=== PATIENT | female | born 1995 | race Caucasian/White ===

== ENCOUNTER 2017-12-22 09:57 | Inpatient (IN) | payer MEDICAID, OTHER ==
[2017-12-22] MEDS: ONDANSETRON (ODT) 4 MG TAB ODT (10:37)
[2017-12-22 10:44] LABS: ADD MAN DIFF? NO
[2017-12-22 10:48] LABS: WHITE BLOOD COUNT 7.1 10^3/ul (4.8-10.8)
[2017-12-22 10:48] LABS: BASOPHIL # 0.1 10^3/ul (0.0-0.1); BASOPHILS % 0.8 % (0.0-2.0); EOSINOPHILS # 0.1 10^3/ul (0.0-0.5); EOSINOPHILS % 1.7 % (0.0-7.0); HEMATOCRIT 31.9 % (37.0-47.0); HEMOGLOBIN 10.8 g/dl (12.0-16.0); LYMPHOCYTES # 2.6 10^3/ul (0.8-2.9); LYMPHOCYTES % 36.1 % (15.0-51.0); MEAN CORPUSCULAR HEMOGLOBIN 33.9 pg (29.0-33.0); MEAN CORPUSCULAR HGB CONC 33.9 g/dl (32.0-37.0); MEAN PLATELET VOLUME 9.7 fl (7.4-10.4); MONOCYTE # 0.4 10^3/ul (0.3-0.9); MONOCYTES % 5.5 % (0.0-11.0); NEUTROPHIL # 3.9 10^3/ul (1.6-7.5); NEUTROPHILS % 55.5 % (39.0-77.0); PLATELET COUNT 200 10^3/UL (140-415); RED BLOOD COUNT 3.19 10^6/ul (4.20-5.40); RED CELL DISTRIBUTION WIDTH 13.7 % (11.5-14.5)
[2017-12-22 10:52] LABS: ADD UMIC YES; UR ASCORBIC ACID NEGATIVE (NEGATIVE); UR BACTERIA FEW /HPF (NONE SEEN); UR BILIRUBIN (Dip) NEGATIVE (NEGATIVE); UR BLOOD (Dip) 3+ mg/dL (NEGATIVE); UR BUDDING YEAST MODERATE /HPF (NONE SEEN); UR CLARITY CLOUDY (CLEAR); UR COLOR YELLOW (YELLOW); UR GLUCOSE (Dip) NEGATIVE (NEGATIVE); UR KETONES (Dip) NEGATIVE (NEGATIVE); UR LEUKOCYTE ESTERASE (Dip) TRACE Leu/ul (NEGATIVE); UR MUCUS MODERATE /HPF (NONE SEEN); UR NITRITE (Dip) NEGATIVE (NEGATIVE); UR RBC > 182 /HPF (0-5); UR SPECIFIC GRAVITY (Dip) 1.023 (1.003-1.030); UR SQUAMOUS EPITHELIAL CELL FEW /HPF (FEW); UR TOTAL PROTEIN (Dip) 2+ mg/dl (NEGATIVE); UR UROBILINOGEN (Dip) NEGATIVE (NEGATIVE); UR WBC 65 /HPF (0-5)
[2017-12-22 11:08] LABS: ALANINE AMINOTRANSFERASE 48 IU/L (13-69); ALBUMIN/GLOBULIN RATIO 1.51; ALKALINE PHOSPHATASE 42 IU/L (42-121); ANION GAP 14 (8-16); ASPARTATE AMINO TRANSFERASE 64 IU/L (15-46); BILIRUBIN,INDIRECT 0.3 mg/dl (0-1.1); BILIRUBIN,TOTAL 0.3 mg/dl (0.2-1.3); BLOOD UREA NITROGEN 14 mg/dl (7-20); CALCIUM 9.1 mg/dl (8.4-10.2); CARBON DIOXIDE 23 mmol/L (21-31); CHLORIDE 107 mmol/L (97-110); CREATINE KINASE 1121 IU/L (23-200); CREATININE 1.22 mg/dl (0.44-1.00); GLUCOSE 96 mg/dl (70-220); LIPASE 177 U/L (23-300); POTASSIUM 4.1 mmol/L (3.5-5.1); SODIUM 140 mmol/L (135-144); TOTAL PROTEIN 8.3 g/dl (6.1-8.1)
[2017-12-22] MEDS ORDERED: ONDANSETRON 4 MG INJ IV ×2 (14:00→17:30)
[2017-12-22] MEDS ORDERED: ACETAMINOPHEN 325 MG TAB PO ×2 (14:00→17:30)
[2017-12-22] MEDS: CEFTRIAXONE 1 GM/50 ML (PMX) 50 ML IVPB (14:02)
[2017-12-22] MEDS ORDERED: NACL 0.9% 3 ML SYG IV (17:30)
[2017-12-22] MEDS: SOD CHLORIDE 0.9% 1,000 ML IV (18:40)
[2017-12-22] MEDS: PRENATAL VITAMIN PO (21:11)
[2017-12-23] MEDS: SOD CHLORIDE 0.9% 1,000 ML IV ×3 (02:31→17:16)
[2017-12-23 05:39] LABS: ADD MAN DIFF? NO
[2017-12-23 05:49] LABS: BASOPHIL # 0.1 10^3/ul (0.0-0.1); BASOPHILS % 0.7 % (0.0-2.0); EOSINOPHILS # 0.2 10^3/ul (0.0-0.5); EOSINOPHILS % 2.1 % (0.0-7.0); HEMATOCRIT 30.2 % (37.0-47.0); HEMOGLOBIN 10.1 g/dl (12.0-16.0); LYMPHOCYTES # 2.6 10^3/ul (0.8-2.9); LYMPHOCYTES % 34.1 % (15.0-51.0); MEAN CORPUSCULAR HEMOGLOBIN 33.8 pg (29.0-33.0); MEAN CORPUSCULAR HGB CONC 33.4 g/dl (32.0-37.0); MEAN PLATELET VOLUME 10.5 fl (7.4-10.4); MONOCYTE # 0.5 10^3/ul (0.3-0.9); MONOCYTES % 6.4 % (0.0-11.0); NEUTROPHIL # 4.2 10^3/ul (1.6-7.5); NEUTROPHILS % 56.3 % (39.0-77.0); PLATELET COUNT 179 10^3/UL (140-415); RED BLOOD COUNT 2.99 10^6/ul (4.20-5.40); RED CELL DISTRIBUTION WIDTH 13.8 % (11.5-14.5)
[2017-12-23 05:49] LABS: HEMOGLOBIN A1C 5.3 % (0-5.9); WHITE BLOOD COUNT 7.5 10^3/ul (4.8-10.8)
[2017-12-23 06:13] LABS: ALANINE AMINOTRANSFERASE 34 IU/L (13-69); ALBUMIN 4.1 g/dl (3.3-4.9); ALBUMIN/GLOBULIN RATIO 1.41; ALKALINE PHOSPHATASE 31 IU/L (42-121); ANION GAP 10 (8-16); ASPARTATE AMINO TRANSFERASE 60 IU/L (15-46); BILIRUBIN,INDIRECT 0.3 mg/dl (0-1.1); BILIRUBIN,TOTAL 0.3 mg/dl (0.2-1.3); BLOOD UREA NITROGEN 13 mg/dl (7-20); CALCIUM 8.8 mg/dl (8.4-10.2); CARBON DIOXIDE 24 mmol/L (21-31); CHLORIDE 109 mmol/L (97-110); CREATINE KINASE 1152 IU/L (23-200); CREATININE 1.18 mg/dl (0.44-1.00); GLUCOSE 90 mg/dl (70-220); PHOSPHORUS 3.5 mg/dl (2.5-4.9); POTASSIUM 3.9 mmol/L (3.5-5.1); SODIUM 139 mmol/L (135-144)
[2017-12-23 06:40] LABS: FREE THYROXINE INDEX (Calc) 0.18 ug/ml (0.65-3.89); T3 UPTAKE 22.5 % (23.5-40.5)
[2017-12-23 07:02] LABS: T4 (THYROXINE) 0.8 ug/dl (5.5-11.0)
[2017-12-23] MEDS: PRENATAL VITAMIN PO (08:29)
[2017-12-23] MEDS ORDERED: CEFTRIAXONE 1 GM/50 ML (PMX) 50 ML IVPB (10:00)
[2017-12-23] MEDS: CEFTRIAXONE 1 GM/50 ML (PMX) 50 ML IVPB (13:06)
[2017-12-23] MEDS: LEVOTHYROXINE 150 MCG TAB PO (13:15)
[2017-12-23] MEDS: LEVOTHYROXINE 100 MCG VIAL IV ×2 (17:30→22:26)
[2017-12-23] MEDS ORDERED: LEVOTHYROXINE 100 MCG VIAL IV (19:30)
[2017-12-23] MEDS: LIOTHYRONINE 5 MCG TAB PO (22:23)
[2017-12-24 05:35] LABS: ADD MAN DIFF? NO
[2017-12-24] MEDS: SOD CHLORIDE 0.9% 1,000 ML IV ×4 (05:35→22:43)
[2017-12-24] MEDS: LEVOTHYROXINE 150 MCG TAB PO (05:35)
[2017-12-24 05:47] LABS: BASOPHIL # 0.1 10^3/ul (0.0-0.1); BASOPHILS % 0.8 % (0.0-2.0); EOSINOPHILS # 0.2 10^3/ul (0.0-0.5); EOSINOPHILS % 2.1 % (0.0-7.0); HEMATOCRIT 29.7 % (37.0-47.0); HEMOGLOBIN 9.9 g/dl (12.0-16.0); LYMPHOCYTES # 2.8 10^3/ul (0.8-2.9); LYMPHOCYTES % 36.8 % (15.0-51.0); MEAN CORPUSCULAR HEMOGLOBIN 33.3 pg (29.0-33.0); MEAN CORPUSCULAR HGB CONC 33.3 g/dl (32.0-37.0); MEAN PLATELET VOLUME 10.8 fl (7.4-10.4); MONOCYTE # 0.5 10^3/ul (0.3-0.9); MONOCYTES % 5.9 % (0.0-11.0); NEUTROPHIL # 4.1 10^3/ul (1.6-7.5); PLATELET COUNT 178 10^3/UL (140-415); RED BLOOD COUNT 2.97 10^6/ul (4.20-5.40); RED CELL DISTRIBUTION WIDTH 13.8 % (11.5-14.5)
[2017-12-24 05:47] LABS: WHITE BLOOD COUNT 7.6 10^3/ul (4.8-10.8)
[2017-12-24 06:31] LABS: CREATINE KINASE 1202 IU/L (23-200)
[2017-12-24 06:37] LABS: ALANINE AMINOTRANSFERASE 32 IU/L (13-69); ALBUMIN 4.1 g/dl (3.3-4.9); ALBUMIN/GLOBULIN RATIO 1.36; ALKALINE PHOSPHATASE 28 IU/L (42-121); ANION GAP 10 (8-16); ASPARTATE AMINO TRANSFERASE 60 IU/L (15-46); BILIRUBIN,INDIRECT 0.3 mg/dl (0-1.1); BILIRUBIN,TOTAL 0.3 mg/dl (0.2-1.3); BLOOD UREA NITROGEN 14 mg/dl (7-20); CALCIUM 8.6 mg/dl (8.4-10.2); CARBON DIOXIDE 21 mmol/L (21-31); CHLORIDE 109 mmol/L (97-110); CREATININE 1.16 mg/dl (0.44-1.00); GLUCOSE 86 mg/dl (70-220); POTASSIUM 3.8 mmol/L (3.5-5.1); SODIUM 136 mmol/L (135-144); TOTAL PROTEIN 7.1 g/dl (6.1-8.1)
[2017-12-24 07:26] LABS: ERYTHROCYTE SEDIMENTATION RATE 20 mm/Hr (0-20)
[2017-12-24 08:22] LABS: COMPLEMENT C3 81 mg/dl (88-165); COMPLEMENT C4 34 mg/dl (14-44)
[2017-12-24] MEDS: PRENATAL VITAMIN PO (08:32)
[2017-12-24] MEDS: LIOTHYRONINE 5 MCG TAB PO ×2 (08:32→21:10)
[2017-12-24] MEDS: LEVOTHYROXINE 100 MCG VIAL IV (08:32)
[2017-12-24] MEDS: BISACODYL 10 MG SUPP PR (11:57)
[2017-12-24] MEDS: CEFTRIAXONE 1 GM/50 ML (PMX) 50 ML IVPB (14:02)
[2017-12-24] MEDS: DOCUSATE SODIUM 100 MG CAP PO (14:03)
[2017-12-24] MEDS: MAGNESIUM HYDROXIDE 30ML CUP PO (14:03)
[2017-12-25] MEDS: SOD CHLORIDE 0.9% 1,000 ML IV ×2 (01:16→06:32)
[2017-12-25 05:07] LABS: HAAIG REFLEX REFLEX FILED
[2017-12-25 05:48] LABS: ALANINE AMINOTRANSFERASE 39 IU/L (13-69); ALBUMIN 3.9 g/dl (3.3-4.9); ALBUMIN/GLOBULIN RATIO 1.39; ALKALINE PHOSPHATASE 38 IU/L (42-121); ANION GAP 11 (8-16); ASPARTATE AMINO TRANSFERASE 66 IU/L (15-46); BILIRUBIN,INDIRECT 0.1 mg/dl (0-1.1); BILIRUBIN,TOTAL 0.1 mg/dl (0.2-1.3); BLOOD UREA NITROGEN 11 mg/dl (7-20); CALCIUM 8.8 mg/dl (8.4-10.2); CARBON DIOXIDE 22 mmol/L (21-31); CHLORIDE 110 mmol/L (97-110); CREATININE 1.03 mg/dl (0.44-1.00); GLUCOSE 91 mg/dl (70-220); SODIUM 139 mmol/L (135-144); TOTAL PROTEIN 6.7 g/dl (6.1-8.1)
[2017-12-25] MEDS: LEVOTHYROXINE 150 MCG TAB PO (06:31)
[2017-12-25 06:53] LABS: CREATINE KINASE 1143 IU/L (23-200)
[2017-12-25 07:23] LABS: HEPATITIS B SURFACE ANTIGEN NEGATIVE (NEGATIVE)
[2017-12-25 07:41] LABS: HEPATITIS C VIRAL ANTIBODY NEGATIVE (NEGATIVE)
[2017-12-25 07:43] LABS: HEPATITIS B CORE ANTIBODY NEGATIVE (NEGATIVE)
[2017-12-25] MEDS: PRENATAL VITAMIN PO (08:45)
[2017-12-25] MEDS: LIOTHYRONINE 5 MCG TAB PO (08:47)
[2017-12-25] MEDS: CEFTRIAXONE 1 GM/50 ML (PMX) 50 ML IVPB (14:15)
[2017-12-26 14:51] LABS: ANA SCREEN NEGATIVE (NEGATIVE)
[2017-12-26 16:22] LABS: CREATININE, RANDOM URINE 68 mg/dL (20-320); MICROALBUMIN 1.6 mg/dL; MICROALBUMIN/CREATININE RATIO 24 (<30)
[2017-12-27 13:46] LABS: ANCA SCREEN NEGATIVE (NEGATIVE)
[2018-01-15 14:03] LABS: MYELOPEROXIDASE ANTIBODY <1.0 AI; PROTEINASE-3 ANTIBODY <1.0 AI
== END 2017-12-25 15:51 | disposition home or self-care (01) | DRG 644 ==
LOC: PP2 12-24 17:30 → FTE 09:57 → PP2 14:09
DX: E03.1 Congenital hypothyroidism without goiter (principal); M62.82 Rhabdomyolysis; N17.9 Acute kidney failure, unspecified; N30.91 Cystitis, unspecified with hematuria; D64.9 Anemia, unspecified; E66.9 Obesity, unspecified; Z91.14 Patient's other noncompliance with medication regimen; M60.9 Myositis, unspecified; G56.01 Carpal tunnel syndrome, right upper limb; O03.9 Complete or unspecified spontaneous abortion without complication; B96.20 Unspecified Escherichia coli [E. coli] as the cause of diseases classified elsewhere
CPT/HCPCS: 36415; 73218; 76775; 76801; 76817; 80053; 81001; 81025; 82043; 82550; 83036; 83690; 83735; 84100; 84436; 84443; 84479; 84702; 85025; 85651; 86021; 86038; 86160; 86704; 86709; 86803; 86900; 86901; 87086; 87340; 93931; 93971; 99285-25